=== PATIENT | male | born 1960 ===

== ENCOUNTER 2017-11-22 03:22 | Inpatient (IN) | payer BC, MEDICAID ==
--- NOTE | 2017-11-22 03:29 | C.PDOC ---
History Of Present Illness 57 year old male is brought to the ED by EMS for evaluation of intermittent chest pain. Patient reports dull, aching, non radiating left sided chest pain for the past week but worsening since today at 23:00. Patient is also c/o SOB and has difficulty sleeping when laying down. Patient called 911, received 324 aspirin and 3 SL now reports feeling better after the medication. Patient is speaking in full sentences. Time Seen by Provider: 11/22/17 03:29 History Per: Patient, EMS History/Exam Limitations: no limitations Onset/Duration Of Symptoms: Hrs Current Symptoms Are (Timing): Still Present Context: Other Severity: Severe Pain Scale Rating Of: 6 Quality: Dull, Aching Associated Symptoms: Dyspnea Modifying Factors: None Exacerbating Factors: None Alleviating Factors: None Nitro Therapy Administered: 3, Per EMS Recent travel outside of the [place]: No Additional History Per: Patient Past Medical History Reviewed: Historical Data, Nursing Documentation, Vital Signs Vital Signs: Last Vital Signs Temp 98.3 F 11/22/17 03:31 Pulse 86 11/22/17 03:39 Resp 16 11/22/17 03:31 BP 146/79 11/22/17 03:39 Pulse Ox 96 11/22/17 04:07 - Medical History PMH: Anemia, Arthritis (spine), Back Problems, CHF, Diabetes, Gall Bladder Disease, HTN, Hypercholesterolemia, Pancreatitis (h/o alcoholism, but recovered) Denies: HIV Surgical History: No Surg Hx - [facility] Procedures CATARAC PHACOEMULS/ASPIR (02/08/14) ENDOSC POLYPECTOMY OF LG INTEST (11/17/13) ESOPHAGOGASTRODUODENOSCOPY [EGD] W/CLOSED BIOPSY (11/17/13) INSERT LENS AT CATAR EXT (02/08/14) INTRODUCTION OF SERUM/TOX/VACCINE INTO MUSCLE, PERC APPROACH (02/16/16) NEBULIZER THERAPY (09/03/14) Family History: States: Unknown Family Hx - Social History Hx Tobacco Use: Yes Hx Alcohol Use: (Occasional) Hx Substance Use: No - Immunization History Hx Tetanus Toxoid Vaccination: Yes Hx Influenza Vaccination: Yes Hx Pneumococcal Vaccination: No Review Of Systems Constitutional: Negative for: Fever, Chills Cardiovascular: Positive for: Chest Pain. Negative for: Palpitations Respiratory: Positive for: Shortness of Breath Gastrointestinal: Negative for: Nausea, Vomiting Skin: Negative for: Rash Neurological: Negative for: Weakness, Numbness, Headache, Dizziness Physical Exam - Physical Exam Appears: Non-toxic, Other (anxious) Skin: Warm, Dry Head: Normacephalic Eye(s): bilateral: Normal Inspection Nose: No Discharge Oral Mucosa: Moist Neck: Normal ROM, Supple, Other (milf jvd) Chest: Symmetrical Cardiovascular: Rhythm Regular, No Murmur Respiratory: Decreased Breath Sounds, Rales (at bases), No Rhonchi, No Wheezing Gastrointestinal/Abdominal: Bowel Sounds (active), Soft, No Tenderness, No Guarding, No Rebound Back: No CVA Tenderness Extremity: Normal ROM, No Tenderness, Pedal Edema (trace B/L), Capillary Refill (< 2 seconds) Extremity: Bilateral: Atraumatic, Normal Color And Temperature, Normal ROM Pulses: Left Dorsalis Pedis: Normal, Right Dorsalis Pedis: Normal Neurological/Psych: Oriented x3, Normal Motor, Normal Sensation Gait: Steady ED Course And Treatment - Laboratory Results Result Diagrams: 11/22/17 03:41 11/22/17 03:41 ECG: Interpreted By Me, Viewed By Me ECG Rhythm: Sinus Rhythm (88), Nonspecific Changes O2 Sat by Pulse Oximetry: 96 (On RA) Pulse Ox Interpretation: Normal - Radiology CXR: Interpreted by Me, Viewed By Me CXR Interpretation: Yes: Cardiomegaly, Other (chf). No: Infiltrates, Fracture Progress Note: Plan: - VBG. - EKG. - Labs. - CXR. - Morphine 2 mg IVP. - UA Disposition Discussed With : Moon Boyd Comment: accepted the pt [facility] service and took over the care at 4:15 AM Doctor Will See Patient In The: Hospital Counseled Patient/Family Regarding: Studies Performed, Diagnosis - Disposition Disposition: HOSPITALIZED Disposition Time: 03:29 Condition: GUARDED - POA Present On Arrival: Poor Glycemic Control - Clinical Impression Clinical Impression: Chest pain, Congestive heart failure - Scribe Statement The provider has reviewed the documentation as recorded by the Scribe Cedrick Schulz All medical record entries made by the Scribe were at my direction and personally dictated by me. I have reviewed the chart and agree that the record accurately reflects my personal performance of the history, physical exam, medical decision making, and the department course for this patient. I have also personally directed, reviewed, and agree with the discharge instructions and disposition. Decision To Admit - Pt Status Changed To: Hospital Disposition Of: Inpatient - Admit Certification Admit to Inpatient:: After my assessment, the patient will require hospitalization for at least two midnights. This is because of the severity of symptoms shown, intensity of services needed, and/or the medical risk in this patient being treated as an outpatient. - InPatient: Physician Admission Certification: I certify that this patient requires 2 or more midnights of care for the following reason:: After my assessment, the patient will require hospitalization for at least two midnights. This is because of the severity of symptoms shown, intensity of services needed, and/or the medical risk in this patient being treated as an outpatient. - . Bed Request Type: Telemetry Admitting Physician: Moon Boyd Patient Diagnosis: Chest pain, Congestive heart failure
[2017-11-22 03:34] VITALS: BMI 29.7
[2017-11-22 03:44] LABS: BASO % 0.4 % (0.0-2.0); EOS # 0.4 K/uL (0.0-0.7); HEMOGLOBIN 8.7 g/dL (12.0-18.0); LYMPH # 1.6 K/uL (1.0-4.3); LYMPH % 21.3 % (20.0-40.0); MEAN CELL VOLUME 83.4 fL (80.0-94.0); MEAN CORPUSCULAR HGB CONC 33.5 g/dL (33.0-37.0); MEAN PLATELET VOLUME 9.3 fL (7.2-11.7); MONO # 0.9 K/uL (0.0-0.8); MONO % 11.4 % (0.0-10.0); NEUT # 4.8 K/uL (1.8-7.0); NEUT % 61.9 % (50.0-75.0); NRBC % 0.1 % (0.0-2.0); RBC 3.11 Mil/uL (4.40-5.90); RED CELL DISTRIBUTION WIDTH 13.2 % (11.5-14.5); WHITE BLOOD COUNT 7.7 K/uL (4.8-10.8)
[2017-11-22] MEDS ORDERED: Morphine 4 MG/ML VIAL ONE (03:48)
[2017-11-22 03:52] LABS: PROTHROMBIN TIME 11.4 SECONDS (9.7-12.2)
[2017-11-22 03:56] LABS: VENOUS BLOOD GAS BASE EXCESS -4.5 mmol/L (0.0-2.0); VENOUS BLOOD GAS PCO2 40 mmHg (40-60); VENOUS BLOOD GAS PO2 27 mm/Hg (30-55); VENOUS BLOOD PH 7.33 (7.32-7.43)
[2017-11-22 03:57] LABS: ALBUMIN 3.6 g/dL (3.5-5.0); ALT/SGPT 38 U/L (21-72); AST/SGOT 46 U/L (17-59); BLOOD UREA NITROGEN 22 mg/dL (9-20); CALCIUM 8.4 mg/dl (8.6-10.4); GFR AFRICAN-AMERICAN 59; GFR NON-AFRICAN AMERICAN 48; LIPASE 15 U/L (23-300)
[2017-11-22 04:08] LABS: B-TYPE NATRIURETIC PEPTIDE 1150 pg/mL (0-900)
[2017-11-22] MEDS: (Novolog) Insulin Aspart, Recombinant 100 u/ml 10 ml vial SC SCH ×4 (08:15→21:31)
--- NOTE | 2017-11-22 08:26 | RAD ---
PROCEDURE: CHEST RADIOGRAPH, 1 VIEW HISTORY: chest pain COMPARISON: Comparison is made to 01/23/2014 FINDINGS: LUNGS: Interval appearance of patchy central and perihilar opacities since the previous exam suspicious for acute pulmonary edema or ARDS PLEURA: No pneumothorax or pleural fluid seen. CARDIOVASCULAR: Normal. OSSEOUS STRUCTURES: No significant abnormalities. VISUALIZED UPPER ABDOMEN: Normal. OTHER FINDINGS: None. IMPRESSION: New central and perihilar opacities suspicious for pulmonary edema or ARDS.
[2017-11-22 11:39] LABS: CK-MB 3.31 ng/mL (0.0-3.38)
[2017-11-22 16:20] VITALS: RESP 20
[2017-11-22 17:56] LABS: CK-MB 2.98 ng/mL (0.0-3.38)
[2017-11-22] MEDS ORDERED: TRADJENTA 5 MG PO SCH (18:15)
--- NOTE | 2017-11-22 21:41 | CP.PCM.CON ---
History of Present Illness - History of Present Illness History of Present Illness: CC: Chest Pain 57 year old male presented to for intermittent chest pain. Patient reports dull, aching, non radiating left sided chest pain for the past week but worsening since today at 23:00. Patient is also c/o SOB and has difficulty sleeping when laying down. Patient called 911, received 324 aspirin and 3 SL now reports feeling better after the medication. Patient is speaking in full sentences. Review Of Systems Constitutional: Negative for: Fever, Chills Cardiovascular: Positive for: Chest Pain. Negative for: Palpitations Respiratory: Positive for: Shortness of Breath Gastrointestinal: Negative for: Nausea, Vomiting Skin: Negative for: Rash Neurological: Negative for: Weakness, Numbness, Headache, Dizziness Physical Exam - Physical Exam Appears: Non-toxic, Other (anxious) Skin: Warm, Dry Head: Normacephalic Eye(s): bilateral: Normal Inspection Nose: No Discharge Oral Mucosa: Moist Neck: Normal ROM, Supple, Other (milf jvd) Chest: Symmetrical Cardiovascular: Rhythm Regular, No Murmur Respiratory: Decreased Breath Sounds, Rales (at bases), No Rhonchi, No Wheezing Gastrointestinal/Abdominal: Bowel Sounds (active), Soft, No Tenderness, No Guarding, No Rebound Back: No CVA Tenderness Extremity: Normal ROM, No Tenderness, Pedal Edema (trace B/L), Capillary Refill (< 2 seconds) Extremity: Bilateral: Atraumatic, Normal Color And Temperature, Normal ROM Pulses: Left Dorsalis Pedis: Normal, Right Dorsalis Pedis: Normal Neurological/Psych: Oriented x3, Normal Motor, Normal Sensation Gait: Steady Past Patient History - Infectious Disease Hx of Infectious Diseases: None - Tetanus Immunizations Tetanus Immunization: Unknown - Past Medical History & Family History Past Medical History?: Yes - Past Social History Smoking Status: Never Smoked - CARDIAC Hx Congestive Heart Failure: Yes Hx Hypercholesterolemia: Yes Hx Hypertension: Yes - PULMONARY Hx Respiratory Disorders: No - NEUROLOGICAL Hx Neurological Disorder: No - HEENT Hx HEENT Problems: No - ENDOCRINE/METABOLIC Hx Endocrine Disorders: Yes Hx Diabetes Mellitus Type 2: Yes - HEMATOLOGICAL/ONCOLOGICAL Hx Anemia: Yes Hx Human Immunodeficiency Virus (HIV): No - INTEGUMENTARY Hx Dermatological Problems: No - MUSCULOSKELETAL/RHEUMATOLOGICAL Hx Falls: No - GASTROINTESTINAL Hx Gall Bladder Disease: Yes Hx Pancreatitis: Yes (h/o alcoholism, but recovered) - GENITOURINARY/GYNECOLOGICAL Hx Genitourinary Disorders: No - PSYCHIATRIC Hx Substance Use: Yes (marijuana) - SURGICAL HISTORY Hx Surgeries: Yes Hx Cataract Extraction: Yes (LEFT EYE) - ANESTHESIA Hx Anesthesia: Yes Hx Anesthesia Reactions: No Meds Allergies/Adverse Reactions: Allergies Allergy/AdvReac Type Severity Reaction Status Date / Time No Known Allergies Allergy Verified 11/22/17 03:37 - Medications Medications: Current Medications Home Med (Patient's Own Medication) 1 tab PO DAILY [facility] Last Admin: 11/22/17 18:20 Dose: 1 tab Hydrochlorothiazide (Hydrodiuril) 25 mg PO DAILY [facility] Last Admin: 11/22/17 10:02 Dose: 25 mg Insulin Aspart (Novolog) 0 unit SC ACHS [facility] PRN Reason: Protocol Last Admin: 11/22/17 21:31 Dose: Not Given Losartan Potassium (Cozaar) 50 mg PO DAILY [facility] Last Admin: 11/22/17 10:02 Dose: 50 mg Metoprolol Tartrate (Lopressor) 50 mg PO DAILY [facility] Last Admin: 11/22/17 10:02 Dose: 50 mg Rosuvastatin Calcium (Crestor) 5 mg PO HS [facility] Last Admin: 11/22/17 21:31 Dose: 5 mg Zolpidem Tartrate (Ambien) 5 mg PO HS PRN PRN Reason: Insomnia Last Admin: 11/22/17 21:31 Dose: 5 mg Results - Vital Signs Recent Vital Signs: Last Vital Signs Temp 98.1 F 11/22/17 16:19 Pulse 75 11/22/17 16:19 Resp 20 11/22/17 16:19 BP 157/79 H 11/22/17 16:19 Pulse Ox 96 11/22/17 16:19 - Labs Result Diagrams: 11/22/17 03:41 11/22/17 03:41 Labs: Laboratory Results - last 24 hr 11/22/17 11/22/17 11/22/17 03:41 03:41 03:41 WBC 7.7 RBC 3.11 L Hgb 8.7 L Hct 25.9 L MCV 83.4 D MCH 28.0 MCHC 33.5 RDW 13.2 Plt Count 149 MPV 9.3 Neut % (Auto) 61.9 Lymph % (Auto) 21.3 [place] % (Auto) 11.4 H Eos % (Auto) 5.0 H Baso % (Auto) 0.4 Neut # (Auto) 4.8 Lymph # (Auto) 1.6 [place] # (Auto) 0.9 H Eos # (Auto) 0.4 Baso # (Auto) 0.0 PT 11.4 INR 1.0 APTT 29 pO2 VBG pH VBG pCO2 VBG HCO3 VBG Total CO2 VBG O2 Sat (Calc) VBG Base Excess VBG Potassium Glucose Lactate Sodium 136 Potassium 4.4 Chloride 103 Carbon Dioxide 22 Anion Gap 15 BUN 22 H Creatinine 1.5 Est GFR ( Amer) 59 Est GFR (Non-Af Amer) 48 POC Glucose (mg/dL) Random Glucose 173 H Calcium 8.4 L Total Bilirubin 0.6 AST 46 ALT 38 Alkaline Phosphatase 185 H Total Creatine Kinase CK-MB (Mass) Troponin I < 0.0120 NT-Pro-B Natriuret Pep 1150 H Total Protein 7.2 Albumin 3.6 Globulin 3.6 Albumin/Globulin Ratio 1.0 Lipase 15 L Venous Blood Potassium Serum Ketones Negative 11/22/17 11/22/17 11/22/17 03:51 03:52 06:06 WBC RBC Hgb Hct MCV MCH MCHC RDW Plt Count MPV Neut % (Auto) Lymph % (Auto) [place] % (Auto) Eos % (Auto) Baso % (Auto) Neut # (Auto) Lymph # (Auto) [place] # (Auto) Eos # (Auto) Baso # (Auto) PT INR APTT pO2 27 L VBG pH 7.33 VBG pCO2 40 VBG HCO3 20.0 VBG Total CO2 22.3 VBG O2 Sat (Calc) 55.5 VBG Base Excess -4.5 L VBG Potassium 4.2 Glucose 178 H Lactate 0.7 Sodium 135.0 Potassium Chloride 103.0 Carbon Dioxide Anion Gap BUN Creatinine Est GFR ( Amer) Est GFR (Non-Af Amer) POC Glucose (mg/dL) 193 H 173 H Random Glucose Calcium Total Bilirubin AST ALT Alkaline Phosphatase Total Creatine Kinase CK-MB (Mass) Troponin I NT-Pro-B Natriuret Pep Total Protein Albumin Globulin Albumin/Globulin Ratio Lipase Venous Blood Potassium 4.2 Serum Ketones 11/22/17 11/22/17 11/22/17 11:05 11:09 16:24 WBC RBC Hgb Hct MCV MCH MCHC RDW Plt Count MPV Neut % (Auto) Lymph % (Auto) [place] % (Auto) Eos % (Auto) Baso % (Auto) Neut # (Auto) Lymph # (Auto) [place] # (Auto) Eos # (Auto) Baso # (Auto) PT INR APTT pO2 VBG pH VBG pCO2 VBG HCO3 VBG Total CO2 VBG O2 Sat (Calc) VBG Base Excess VBG Potassium Glucose Lactate Sodium Potassium Chloride Carbon Dioxide Anion Gap BUN Creatinine Est GFR ( Amer) Est GFR (Non-Af Amer) POC Glucose (mg/dL) 187 H 249 H Random Glucose Calcium Total Bilirubin AST ALT Alkaline Phosphatase Total Creatine Kinase 330 H CK-MB (Mass) 3.31 Troponin I < 0.0120 NT-Pro-B Natriuret Pep Total Protein Albumin Globulin Albumin/Globulin Ratio Lipase Venous Blood Potassium Serum Ketones 11/22/17 11/22/17 16:55 21:09 WBC RBC Hgb Hct MCV MCH MCHC RDW Plt Count MPV Neut % (Auto) Lymph % (Auto) [place] % (Auto) Eos % (Auto) Baso % (Auto) Neut # (Auto) Lymph # (Auto) [place] # (Auto) Eos # (Auto) Baso # (Auto) PT INR APTT pO2 VBG pH VBG pCO2 VBG HCO3 VBG Total CO2 VBG O2 Sat (Calc) VBG Base Excess VBG Potassium Glucose Lactate Sodium Potassium Chloride Carbon Dioxide Anion Gap BUN Creatinine Est GFR ( Amer) Est GFR (Non-Af Amer) POC Glucose (mg/dL) 265 H Random Glucose Calcium Total Bilirubin AST ALT Alkaline Phosphatase Total Creatine Kinase 269 H CK-MB (Mass) 2.98 Troponin I < 0.0120 NT-Pro-B Natriuret Pep Total Protein Albumin Globulin Albumin/Globulin Ratio Lipase Venous Blood Potassium Serum Ketones Assessment & Plan - Assessment and Plan (Free Text) Assessment: 57 Male with multiple cardiac risk factors and chest pain Stress test and ECHO in am D/w patient
[2017-11-23 00:47] VITALS: BP 148/80; TEMP 98.6; O2SAT 95
--- NOTE | 2017-11-23 06:05 | HP ---
CHIEF COMPLAINT: Chest pain. HISTORY OF PRESENT ILLNESS: Mr. Meng Bustamante is a 57-year-old male brought to the emergency room by EMS for evaluation of intermittent chest pain. The patient reports pain is dull, achy, nonradiating, left-sided for the past week, but worsened since 2 days. The patient is also complaining of shortness of breath, had difficulty sleeping, when lying down. Called #911, received 324 of aspirin, 3 SL now replaced, feeling better after the medication. The patient is speaking in present tense. When I saw the patient, the was sitting in the bedside also. No nausea, vomiting, diarrhea. No hematuria, hematochezia. No swelling of the legs. No fever, no chills, having associated dyspnea, nitro therapy given by EMS. PAST MEDICAL HISTORY: Anemia, arthritis of scapular spine, congestive heart failure, diabetes mellitus, gallbladder disease, hypertension, hypercholesterolemia, pancreatitis, history of ethanol abuse, but recovered. FAMILY HISTORY: Father and mother unknown. SOCIAL HISTORY: Tobacco, yes; alcohol, occasional; substance abuse, no. ALLERGIES: THE PATIENT IS NOT ALLERGIC WITH ANY MEDICATION. REVIEW OF SYSTEMS: The patient was examined at the bedside. In his room, was sitting on the bedside also. No fever, no chills, no nausea, vomiting, diarrhea. No hematuria, no hematochezia. No swelling of the legs. PHYSICAL EXAMINATION: VITAL SIGNS: Temperature 98.1, pulse of 75, blood pressure 157/79, respiratory rate 20. HEENT: Head normocephalic, atraumatic. Eyes: PERRLA, EOMs intact. Conjunctivae clear. Nose: Patent. NECK: Supple. No carotid bruits, JVD, or thyromegaly. CHEST: Bilaterally symmetrical. HEART: S1, S2 positive. LUNGS: Clear to auscultation. ABDOMEN: Soft, bowel sounds positive. No organomegaly. EXTREMITIES: No edema, no cyanosis. NEUROLOGICAL: The patient is awake, alert. Moving all 4 extremities. No focal deficit. LABS: White blood cell 7.7, hemoglobin 8.7, hematocrit 25.9, platelets 149. Glucose 265, troponin less than 0.0120 x2. Sodium 136, potassium 4.4, BUN 22, creatinine 1.5, calcium 8.4, BNP 1150. ASSESSMENT AND PLAN: Mrs. Fan Robby is a 57-year-old male with anemia, uncontrolled diabetes mellitus, hypocalcemia, congestive heart failure. Serum ketone negative. Coagulation profile within normal limits. Came with chest pain. Seen by [employer], Dr. Claudio. Appreciate Dr. Claudio's input. Multiple cardiac risk factors and chest pain. Stress test and echo in a.m. Discussion done with the patient and patient's . History of dyspnea, gastrointestinal/deep vein thrombosis prophylaxis given. Repeat labs. We will follow up. Moon Boyd MD MTDDebbie
[2017-11-23 06:48] LABS: HEMOGLOBIN 8.4 g/dL (12.0-18.0); MEAN CELL VOLUME 83.1 fL (80.0-94.0); MEAN CORPUSCULAR HEMOGLOBIN 27.8 pg (27.0-31.0); MEAN CORPUSCULAR HGB CONC 33.5 g/dL (33.0-37.0); MEAN PLATELET VOLUME 9.1 fL (7.2-11.7); RBC 3.01 Mil/uL (4.40-5.90); RED CELL DISTRIBUTION WIDTH 12.8 % (11.5-14.5); WHITE BLOOD COUNT 5.7 K/uL (4.8-10.8)
[2017-11-23 07:10] LABS: CALCIUM 8.3 mg/dl (8.6-10.4)
[2017-11-23 07:15] LABS: HDL CHOLESTEROL 32 mg/dL (30-70); IRON 26 ug/dL (49-181)
[2017-11-23 07:25] LABS: % IRON SATURATION 8 (20-55); TOTAL IRON BINDING CAPACITY 343 ug/dL (250-450)
[2017-11-23 07:26] LABS: LDL CHOLESTEROL 41 mg/dL (0-129)
[2017-11-23] MEDS: (Novolog) Insulin Aspart, Recombinant 100 u/ml 10 ml vial SC SCH (07:27)
[2017-11-23 08:17] VITALS: PULSE 76
[2017-11-23 10:32] LABS: SQUAMOUS EPITHIAL < 1 /hpf (0-5); URINE BILIRUBIN NEGATIVE (NEGATIVE); URINE BLOOD 1+ (NEGATIVE); URINE CLARITY Clear (Clear); URINE COLOR Yellow (YELLOW); URINE GLUCOSE (UA) 3+ mg/dL (Normal); URINE LEUKOCYTE ESTERASE NEG Leu/uL (Negative); URINE PROTEIN 2+ mg/dL (NEGATIVE); URINE UROBILINOGEN NORMAL mg/dL (0.2-1.0)
--- NOTE | 2017-11-23 12:08 | CARD ---
APPROVED REPORT EKG Measurement Heart [id number] <Conclusion> Normal sinus rhythm Nonspecific intraventricular block Abnormal ECG
--- NOTE | 2017-11-23 14:17 | CP.PCM.CON ---
<Terrance Carbjaal - Last Filed: 11/23/17 14:13> History of Present Illness - History of Present Illness History of Present Illness: PGY5 GI Fellow Consult Note Patient is a 57yo male with PMHx significant for diabetes mellitus, HTN and vertigo who presented to the ED with chest pain. The patient developed left sided, squeezing pressure-like chest pain around his nipple on Thursday evening. Symptoms improved slightly with rest but returned Thursday morning and became more severe over the course of the day. As pain intensified, he called 911 to bring him to the hospital. En route he received sublingual nitroglycerine and he received morphine in the ED which both alleviated symptoms. At present, pain is mostly resolved. He denies any abdominal pain, nausea, vomiting, reflux, weight loss, change in bowel habits. He notes that his PCP recommended he be evaluated for screening colonoscopy as he has not had this previously. 12 system ROS performed and negative except where stated. PMHx: See HPI PSHx: Discussed with patient and he denies FHx: Discussed with patient and he denies any significant family history Social: Denies tobacco or illicit drug use; occasional weekend EtOH use (2-3 beers) Endo: No prior endoscopic evaluations Past Patient History - Infectious Disease Hx of Infectious Diseases: None - Tetanus Immunizations Tetanus Immunization: Unknown - Past Medical History & Family History Past Medical History?: Yes - Past Social History Smoking Status: Never Smoked - CARDIAC Hx Congestive Heart Failure: Yes Hx Hypercholesterolemia: Yes Hx Hypertension: Yes - PULMONARY Hx Respiratory Disorders: No - NEUROLOGICAL Hx Neurological Disorder: No - HEENT Hx HEENT Problems: No - ENDOCRINE/METABOLIC Hx Endocrine Disorders: Yes Hx Diabetes Mellitus Type 2: Yes - HEMATOLOGICAL/ONCOLOGICAL Hx Anemia: Yes Hx Human Immunodeficiency Virus (HIV): No - INTEGUMENTARY Hx Dermatological Problems: No - MUSCULOSKELETAL/RHEUMATOLOGICAL Hx Falls: No - GASTROINTESTINAL Hx Gall Bladder Disease: Yes Hx Pancreatitis: Yes (h/o alcoholism, but recovered) - GENITOURINARY/GYNECOLOGICAL Hx Genitourinary Disorders: No - PSYCHIATRIC Hx Substance Use: Yes (marijuana) - SURGICAL HISTORY Hx Surgeries: Yes Hx Cataract Extraction: Yes (LEFT EYE) - ANESTHESIA Hx Anesthesia: Yes Hx Anesthesia Reactions: No Meds Allergies/Adverse Reactions: Allergies Allergy/AdvReac Type Severity Reaction Status Date / Time No Known Allergies Allergy Verified 11/22/17 03:37 Physical Exam - Constitutional Appears: Non-toxic, No Acute Distress - Eye Exam Eye Exam: EOMI, PERRL - ENT Exam ENT Exam: Mucous Membranes Moist - Respiratory Exam Respiratory Exam: Clear to Auscultation Bilateral. absent: Rales, Rhonchi, Wheezes - Cardiovascular Exam Cardiovascular Exam: RRR, +S1, +S2 - GI/Abdominal Exam GI & Abdominal Exam: Normal Bowel Sounds, Soft. absent: Distended, Firm, Guarding, Organomegaly, Rigid, Tenderness - Extremities Exam Extremities exam: Positive for: normal inspection. Negative for: pedal edema - Neurological Exam Neurological exam: Alert, Oriented x3 - Psychiatric Exam Psychiatric exam: Normal Affect, Normal Mood - Skin Skin Exam: Dry, Warm Results - Vital Signs Recent Vital Signs: Last Vital Signs Temp 98.6 F 11/22/17 23:15 Pulse 76 11/23/17 08:00 Resp 20 11/22/17 23:15 BP 148/80 11/22/17 23:15 Pulse Ox 95 11/22/17 23:15 - Labs Result Diagrams: 11/23/17 06:39 11/23/17 06:39 Labs: Laboratory Results - last 24 hr 11/22/17 11/22/17 11/22/17 16:24 16:55 21:09 WBC RBC Hgb Hct MCV MCH MCHC RDW Plt Count MPV Sodium Potassium Chloride Carbon Dioxide Anion Gap BUN Creatinine Est GFR ( Amer) Est GFR (Non-Af Amer) POC Glucose (mg/dL) 249 H 265 H Random Glucose Hemoglobin A1c Calcium Iron TIBC % Saturation Total Creatine Kinase 269 H CK-MB (Mass) 2.98 Troponin I < 0.0120 Triglycerides Cholesterol LDL Cholesterol Direct HDL Cholesterol Vitamin B12 TSH 3rd Generation Urine Color Urine Clarity Urine pH Ur Specific [place] Urine Protein Urine Glucose (UA) Urine Ketones Urine Blood Urine Nitrate Urine Bilirubin Urine Urobilinogen Ur Leukocyte Esterase Urine WBC (Auto) Urine RBC (Auto) Ur Squamous Epith Cells 11/23/17 11/23/17 11/23/17 06:11 06:39 06:39 WBC RBC Hgb Hct MCV MCH MCHC RDW Plt Count MPV Sodium Potassium Chloride Carbon Dioxide Anion Gap BUN Creatinine Est GFR ( Amer) Est GFR (Non-Af Amer) POC Glucose (mg/dL) 249 H Random Glucose Hemoglobin A1c 10.6 H Calcium Iron TIBC % Saturation Total Creatine Kinase CK-MB (Mass) Troponin I Triglycerides 142 Cholesterol 120 LDL Cholesterol Direct 41 HDL Cholesterol 32 Vitamin B12 719 TSH 3rd Generation Urine Color Urine Clarity Urine pH Ur Specific [place] Urine Protein Urine Glucose (UA) Urine Ketones Urine Blood Urine Nitrate Urine Bilirubin Urine Urobilinogen Ur Leukocyte Esterase Urine WBC (Auto) Urine RBC (Auto) Ur Squamous Epith Cells 11/23/17 11/23/17 11/23/17 06:39 06:39 06:39 WBC 5.7 RBC 3.01 L Hgb 8.4 L Hct 25.1 L MCV 83.1 MCH 27.8 MCHC 33.5 RDW 12.8 Plt Count 150 MPV 9.1 Sodium 136 Potassium 4.3 Chloride 102 Carbon Dioxide 22 Anion Gap 16 BUN 24 H Creatinine 1.5 Est GFR ( Amer) 59 Est GFR (Non-Af Amer) 48 POC Glucose (mg/dL) Random Glucose 247 H Hemoglobin A1c Calcium 8.3 L Iron 26 L TIBC 343 % Saturation 8 L Total Creatine Kinase CK-MB (Mass) Troponin I Triglycerides Cholesterol LDL Cholesterol Direct HDL Cholesterol Vitamin B12 TSH 3rd Generation 2.79 Urine Color Urine Clarity Urine pH Ur Specific [place] Urine Protein Urine Glucose (UA) Urine Ketones Urine Blood Urine Nitrate Urine Bilirubin Urine Urobilinogen Ur Leukocyte Esterase Urine WBC (Auto) Urine RBC (Auto) Ur Squamous Epith Cells 11/23/17 11/23/17 10:01 12:46 WBC RBC Hgb Hct MCV MCH MCHC RDW Plt Count MPV Sodium Potassium Chloride Carbon Dioxide Anion Gap BUN Creatinine Est GFR ( Amer) Est GFR (Non-Af Amer) POC Glucose (mg/dL) 273 H Random Glucose Hemoglobin A1c Calcium Iron TIBC % Saturation Total Creatine Kinase CK-MB (Mass) Troponin I Triglycerides Cholesterol LDL Cholesterol Direct HDL Cholesterol Vitamin B12 TSH 3rd Generation Urine Color Yellow Urine Clarity Clear Urine pH 5.0 Ur Specific [place] 1.008 Urine Protein 2+ H Urine Glucose (UA) 3+ H Urine Ketones Negative Urine Blood 1+ H Urine Nitrate Negative Urine Bilirubin Negative Urine Urobilinogen Normal Ur Leukocyte Esterase Neg Urine WBC (Auto) 1 Urine RBC (Auto) 5 H Ur Squamous Epith Cells < 1 Assessment & Plan - Assessment and Plan (Free Text) Assessment: Patient is a 57yo male with PMHx significant for diabetes mellitus, HTN and vertigo who presented to the ED with chest pain. -Chest pain, angina - R/O ACS -Normocytic anemia Plan: -No overt GI blood loss -Transfusion and supportive care as needed -Cardiac work up in progress -Will benefit from outpatient EGD/Colonoscopy - Date & Time Date: 11/23/17 Time: 06:45 <Katelyn Maloney - Last Filed: 11/23/17 18:17> Results - Vital Signs Recent Vital Signs: Last Vital Signs Temp 98.6 F 11/22/17 23:15 Pulse 76 11/23/17 08:00 Resp 20 11/22/17 23:15 BP 148/80 11/22/17 23:15 Pulse Ox 95 11/22/17 23:15 - Labs Result Diagrams: 11/23/17 06:39 11/23/17 06:39 Labs: Laboratory Results - last 24 hr 11/22/17 11/23/17 11/23/17 21:09 06:11 06:39 WBC RBC Hgb Hct MCV MCH MCHC RDW Plt Count MPV Sodium Potassium Chloride Carbon Dioxide Anion Gap BUN Creatinine Est GFR ( Amer) Est GFR (Non-Af Amer) POC Glucose (mg/dL) 265 H 249 H Random Glucose Hemoglobin A1c 10.6 H Calcium Iron TIBC % Saturation Triglycerides Cholesterol LDL Cholesterol Direct HDL Cholesterol Vitamin B12 TSH 3rd Generation Urine Color Urine Clarity Urine pH Ur Specific [place] Urine Protein Urine Glucose (UA) Urine Ketones Urine Blood Urine Nitrate Urine Bilirubin Urine Urobilinogen Ur Leukocyte Esterase Urine WBC (Auto) Urine RBC (Auto) Ur Squamous Epith Cells 11/23/17 11/23/17 11/23/17 06:39 06:39 06:39 WBC 5.7 RBC 3.01 L Hgb 8.4 L Hct 25.1 L MCV 83.1 MCH 27.8 MCHC 33.5 RDW 12.8 Plt Count 150 MPV 9.1 Sodium Potassium Chloride Carbon Dioxide Anion Gap BUN Creatinine Est GFR ( Amer) Est GFR (Non-Af Amer) POC Glucose (mg/dL) Random Glucose Hemoglobin A1c Calcium Iron 26 L TIBC 343 % Saturation 8 L Triglycerides 142 Cholesterol 120 LDL Cholesterol Direct 41 HDL Cholesterol 32 Vitamin B12 719 TSH 3rd Generation Urine Color Urine Clarity Urine pH Ur Specific [place] Urine Protein Urine Glucose (UA) Urine Ketones Urine Blood Urine Nitrate Urine Bilirubin Urine Urobilinogen Ur Leukocyte Esterase Urine WBC (Auto) Urine RBC (Auto) Ur Squamous Epith Cells 11/23/17 11/23/17 11/23/17 06:39 10:01 12:46 WBC RBC Hgb Hct MCV MCH MCHC RDW Plt Count MPV Sodium 136 Potassium 4.3 Chloride 102 Carbon Dioxide 22 Anion Gap 16 BUN 24 H Creatinine 1.5 Est GFR ( Amer) 59 Est GFR (Non-Af Amer) 48 POC Glucose (mg/dL) 273 H Random Glucose 247 H Hemoglobin A1c Calcium 8.3 L Iron TIBC % Saturation Triglycerides Cholesterol LDL Cholesterol Direct HDL Cholesterol Vitamin B12 TSH 3rd Generation 2.79 Urine Color Yellow Urine Clarity Clear Urine pH 5.0 Ur Specific [place] 1.008 Urine Protein 2+ H Urine Glucose (UA) 3+ H Urine Ketones Negative Urine Blood 1+ H Urine Nitrate Negative Urine Bilirubin Negative Urine Urobilinogen Normal Ur Leukocyte Esterase Neg Urine WBC (Auto) 1 Urine RBC (Auto) 5 H Ur Squamous Epith Cells < 1 Attending/Attestation - Attestation I have personally seen and examined this patient.: Yes I have fully participated in the care of the patient.: Yes I have reviewed all pertinent clinical information: Yes Notes (Text): 11/23/17 18:14 This is a 57 year old male with PMHx significant for diabetes mellitus, HTN and vertigo who presented to the ED with chest pain and normocytic anemia . Last ECHO showed severely apical hypokinesia in 2014. Hb 8.7 without overt GI bleeding. Recommend full cardiac work up and anti platelet as indicated for cardiac reasons. In absence of GI bleeding no contra inication to anti platelet. Can follow up as outpatient for EGD/ colonoscopy. Thank you for letting us participate in the care of your patient
--- NOTE | 2017-11-23 21:58 | CARD ---
APPROVED REPORT Protocol: PHARMACOLOGICAL STRESS Test Type: LEXISCAN Test Indications: CHEST PAIN,CHF,IDDM Medications: LIST SCAN Medical History: CHEST PAIN,CHF,IDDM Target HR: 164 bpm Resting ECG: SINUS RHYTHM W/ LBBB Resting Heart Rate: 83 bpm Resting Blood Pressure: 150/70mmHg submaximum (85%): 139 bpm TEST SUMMARY PRETESTWARM-UP07:[id number]/70.0. INFUSIONDOSE 100:300.00.01.076/.0. [id number]:080.00..[id number]/60.0. PROCEDURE Pharmacologic stress testing was performed using 0.4mg per 5ml of regadenoson given intravenously over 7-10 seconds. Reversal agent aminophyline 125 mg, given intravenously for Chest Pain. POST EXERCISE Reason for Termination: Protocol Completed Target HR: No Max HR: 76 bpm 58% of Maximum Predicted HR: 164 bpm Exercise duration: 00:30 min:sec, 0 Stage Exercise capacity: 1.0METs Max Blood Pressure: 150/70mmHg Blood Pressure response to exercise: normal resting BP - appropriate response Heart Rate response to exercise: appropriate Chest Pain: No, none Angina index: 0 Arrhythmia: No, none ST Change: No, none Deviation: 0 mm INTERPRETATION Stress EKG Conclusion: INCONCLUSIVE LEXISCAN STRESS TEST DUE TO PRE-EXISTING LBBB NORMAL BP RESPONSE TO LEXISCAN NUCLEAR STUDIES TO BE READ SEPARATELY EXAM: Myocardial Perfusion STRESS/REST Imaging Protocol The imaging protocol used to acquire images was Stress Tc-99m/rest Tc-99m 1 day Rest Spect myocardial perfusion imaging was performed in supine position 45 minutes following the injection of 32.3 mCi of Tc-99 Myoview. Gated Stress Spect was performed 45 minutes after intravenous 12.8 mCi Tc-99 Myoview injection. The images were gated to evaluate regional wall motion and calculate ventricular ejection fraction.Images were reconstructed using backfilter projection method in short horizontal and verticle long axis. Spect slices were generated. RESTING DATA KVT155.81hbZV8.90L/min UHN529.00mlMyocardial Avwj056.00g Av. Heart Rate83.00bpm EF45.00% STRESS DATA VOT696.79keMA8.60L/min MAN019.00mlMyocardial Kjvt886.00g EF42.00% Regional WT score at stress:2.00 Regional WM score at stress:0.00 Summed WT score at stress:11.00 Av. Heart Rate85.00bpmSummed WM score at stress:23.00 LV Perf. Quant 17 Seg. SSS6.00 17 Seg. SRS4.00 17 Seg. SDS3.00 Stress Defect Extent (% LAD)22.50Rest Defect Extent (% LAD)15.60Rev. Defect Extent (% LAD)3.80 Stress Defect Extent (% LCX)0.00Rest Defect Extent (% LCX)0.00Rev. Defect Extent (% LCX)0.00 Stress Defect Extent (% RCA)0.00Rest Defect Extent (% RCA)0.00Rev. Defect Extent (% RCA)0.00 Stress Defect Extent (% WOLFGANG)10.00Rest Defect Extent (% WOLFGANG)6.30Rev. Defect Extent (% WOLFGANG)2.80 IMPRESSION Abnormal Myocardial Perfusion exercise stress study Left Ventricle LV Size/Shape: The Left Ventricle is mildly dilated. LV Function:Left ventricle systolic function is moderately impaired. The Ejection Fraction is 35-45%. Regional Wall Motion:Regional wall motion abnormalities noted. Metabolism/Perfusion Defects: There is no scan evidence of reversible ischemia noted. Conclusion 1. There is no scan evidence of reversible ischemia noted. 2. Left ventricle systolic function is moderately impaired. 3. The Ejection Fraction is 35-45%.
--- NOTE | 2017-11-24 00:03 | CARD ---
APPROVED REPORT EXAM: Two-dimensional and M-mode echocardiogram with Doppler and color Doppler. Other Information Quality : GoodRhythm : INDICATION Dizziness and Vertigo Chest Pain Congestive Heart Failure RISK FACTORS Hypertension Diabetes 2D DIMENSIONS IVSd0.9 (0.7-1.1cm)LVDd5.4 (3.9-5.9cm) PWd1.1 (0.7-1.1cm)LVDs4.3 (2.5-4.0cm) FS (%) 20.4 % M-Mode DIMENSIONS RVDd1.92 (2.1-3.2cm)Left Atrium (MM)4.27 (2.5-4.0cm) IVSd1.07 (0.7-1.1cm)Aortic Root3.15 (2.2-3.7cm) LVDd5.72 (4.0-5.6cm)Aortic Cusp Exc.2.04 (1.5-2.0cm) PWd1.11 (0.7-1.1cm)FS (%) 25 % LVDs4.28 (2.0-3.8cm)LVEF (%)49 (>50%) Aortic Valve AI P 1/2 [id number] Mitral Valve MV E Pzowqpbd589.7cm/sMV A Pyvjprym284.2cm/sE/A ratio0.9 TDI E/Lateral E'0.0E/Medial E'0.0 Tricuspid Valve TR Peak [id number]/sTR Peak Gr.82fqZpGGIL96tzXd LEFT VENTRICLE The left ventricle is normal size. There is borderline concentric left ventricular hypertrophy. Left ventricle systolic function is mildly impaired. The Ejection Fraction is 45-50%. There is mild hypokinesis in the mid-anteroseptal wall. Transmitral Doppler flow pattern is Grade I-abnormal relaxation pattern. There is no ventricular septal defect visualized. RIGHT VENTRICLE The right ventricle is normal size. The right ventricular systolic function is normal. ATRIA The left atrium is mildly dilated. The right atrium is mildly dilated. AORTIC VALVE The aortic valve is mildly to moderately sclerotic. The aortic valve is tri-cuspid. There is moderate aortic regurgitation. There is no aortic valvular stenosis. MITRAL VALVE Mitral annular calcification is mild. There is no evidence of mitral valve prolapse. Mitral regurgitation is moderate. ERO 0.8 cm TRICUSPID VALVE The tricuspid valve is normal in structure. There is mild to moderate tricuspid regurgitation. Right ventricular systolic pressure is estimated at greater than 60 mmHg. There is severe pulmonary hypertension. PULMONIC VALVE The pulmonary valve is normal in structure. There is trace pulmonic valvular regurgitation. GREAT VESSELS The aortic root is normal in size. The ascending aorta is normal in size. The IVC is normal in size and collapses >50% with inspiration. PERICARDIAL EFFUSION There is no pericardial effusion. <Conclusion> There is borderline concentric left ventricular hypertrophy. Left ventricle systolic function is mildly impaired. The Ejection Fraction is 45-50%. Transmitral Doppler flow pattern is Grade I-abnormal relaxation pattern. There is moderate aortic regurgitation. Mitral regurgitation is moderate. ERO 0.8 cm There is severe pulmonary hypertension.
== END 2017-11-23 13:20 | disposition left against medical advice (07) | DRG 311 ==
LOC: C.ER 03:22 → C.6T 04:14
PROVIDERS: ADMIT Internal Medicine; ATTEND Internal Medicine
DX: I20.0 Unstable angina (principal); D64.9 Anemia, unspecified; E11.65 Type 2 diabetes mellitus with hyperglycemia; E78.00 Pure hypercholesterolemia, unspecified; E83.51 Hypocalcemia; I11.0 Hypertensive heart disease with heart failure; I50.9 Heart failure, unspecified; Z87.891 Personal history of nicotine dependence; F10.21 Alcohol dependence, in remission; Z79.4 Long term (current) use of insulin